=== PATIENT | male | born 1955 | race Caucasian/White ===

== ENCOUNTER → 2018-06-23 | Outpatient (CLI) | payer BC ==
[~2018-06-23] MED LIST: ASPI-700; ATOR80TA18; CLOP75TA19; REGADENOSON 0.4 MG/5 ML SYG ONE
--- NOTE | 2018-06-23 15:00 | CARRPT ---
DATE OF PROCEDURE: 06/23/2018 TYPE OF PROCEDURE: Lexiscan Cardiolite stress test, electrocardiogram portion. REASON FOR STRESS TESTING: Chest pain, assess for ischemia. BASELINE VITAL SIGNS AND ELECTROCARDIOGRAM: Pulse 62, blood pressure 130/83. Electrocardiogram reve aled baseline normal sinus rhythm at 62, normal axis, normal intervals, J-point elevation in inferola teral leads 2, 3, V5, V6. PROCEDURE IN DETAILS: The patient underwent standard Lexiscan infusion protocol over 10 seconds foll owed by radiolabeled tracer. The patient's test was stopped due to completion of protocol. Maximal achieved blood pressure during the test was 142/91. Maximum heart rate during the test was 93. ELECTROCARDIOGRAM FINDINGS: The patient did not develop any new Lexiscan-induced ST or T-wave change s from baseline abnormalities. No documented PVCs. SYMPTOMS: The patient had no complaints of chest pain or shortness of breath during stress testing. IMPRESSION: 1. No Lexiscan-induced ST or T-wave changes from baseline abnormalities diagnostic of cardiac ischem ia. 2. No complaints of chest pain or shortness of breath during stress testing. 3. No documented premature ventricular contractions during stress testing. 4. Report of nuclear images to follow in separate dictation. Dictated By: GUILLERMO CARRANZA/NANCI Conf#: [id number] DID#: [id number]
--- NOTE | 2018-06-23 17:27 | RADRPT ---
Echocardiogram Report [id number] : 1955 (62y 9m)Study Date: 06/23/2018 10:16:42 AM Gender: MAccession #: [id number] Tech: Bertrand Herrera [facility] Location: EKG Ref.Physician: GUILLERMO ALVARADO Height(Cm): BSA: Weight(Kg): Quality: AdequateOrder Physician: GUILLERMO ALVARADO Account #: Procedures: Echocardiographic Report: Transthoracic echocardiogram with complete 2D, M-Mode, and doppler examination. Indications: Chest Pain. Measurements: 2D/M Mode Doppler Measurement Value Normal Range Measurement Value Normal Range LVIDd 2D 4.6 [ 4.2 - 5.8 ] cm AV Peak Roderick 1.2 [ 100.0 - 170.0 ] cm/sec LVIDs 2D 3.2 [ 2.5 - 4.0 ] cm AV Peak PG 5.0 [ 2.0 - 9.0 ] mmHg LVPWd 2D 0.9 [ 0.6 - 1.0 ] cm LVOT Peak Roderick 1.1 [ 70.0 - 110.0 ] cm/sec IVSd 2D 1.5 [ 0.6 - 1.0 ] cm LVOT Peak PG 5.0 [ 2.0 - 6.0 ] mmHg AoR Diam 2D 2.6 [ 2.6 - 3.4 ] cm MV E Peak Roderick 0.5 [ 60.0 - 130.0 ] cm/sec EDV 2D 97.3 [ 62.0 - 150.0 ] ml MV A Peak Roderick 0.6 [ 100.0 - 120.0 ] cm/sec ESV 2D 40.3 [ 21.0 - 61.0 ] ml MV E/A 0.8 [ 0.8 - 1.5 ] ratio EF 2D 58.6 [ 52.0 - 72.0 ] percent MV Decel Time 345 [ 104 - 258 ] msec LA Dimen 2D 3.3 [ 3.0 - 4.0 ] cm Lat E` Roderick 0.1 [ 10.0 - 15.0 ] cm/sec Lateral E/E` 6.6 [ 1.0 - 2.0 ] ratio MV E/A 0.8 [ 0.8 - 1.5 ] ratio TR Peak Roderick 2.2 [ 100.0 - 280.0 ] cm/sec TR Peak PG 20.0 mmHg RVSP 23.0 [ 10.0 - 36.0 ] mmHg Findings: Left Ventricle: Lower limits of normal systolic function. Normal left ventricular cavity size. Moderate asymmetric septal hypertrophy. Ejection fraction is visually estimated at 50-55 %. Tissue Doppler/Mitral Doppler indices are consistent with impaired relaxation (Stage I diastolic dysfunction). Right Ventricle: Normal right ventricular size. Normal right ventricular systolic function. Left Atrium: The left atrium is normal in size. Right Atrium: The right atrium is normal in size. Mitral Valve: Mild mitral leaflet calcification. Mild mitral annular calcification. Mild mitral valve regurgitation. Aortic Valve: No hemodynamically significant aortic stenosis by doppler. Aortic cusps appear mildly calcified. Mild aortic valve regurgitation. Tricuspid Valve: Normal appearance of the tricuspid valve. Estimated peak PA systolic pressure 23 mmHg. There is trace tricuspid regurgitation. Pericardium: Normal pericardium with no significant pericardial effusion. Aorta: Normal aortic root. IVC: Normal size and normal respiratory collapse consistent with normal right atrial pressure. Conclusions: Lower limits of normal systolic function. Normal left ventricular cavity size. Moderate asymmetric septal hypertrophy. Ejection fraction is visually estimated at 50-55 %. Tissue Doppler/Mitral Doppler indices are consistent with impaired relaxation (Stage I diastolic dysfunction). Mild mitral leaflet calcification. Mild mitral annular calcification. Mild mitral valve regurgitation. No hemodynamically significant aortic stenosis by doppler. Aortic cusps appear mildly calcified. Mild aortic valve regurgitation. Normal appearance of the tricuspid valve. Estimated peak PA systolic pressure 23 mmHg. There is trace tricuspid regurgitation. Electronically Signed By: Guillermo Alvarado 2018-06-23 17:26:52 PDT
== END | disposition home or self-care (01) ==
LOC: EKG 09:47
PROVIDERS: ATTEND Internal Medicine
DX: R07.9 Chest pain, unspecified (principal); R06.02 Shortness of breath
CPT/HCPCS: 78452; 93017; 93306; A9500; A9505; J2785

== ENCOUNTER 2018-10-21 06:54 | Inpatient (IN) | payer BC ==
[2018-10-20 14:14] VITALS: Ht 175.3 cm; Wt 66.8 kg
[~2018-10-21] VITALS: Ht 175.3 cm; Wt 66.8 kg
[2018-10-21] VITALS (23 sets, daily range): BP systolic 118–158; BP diastolic 66–93; PULSE 50–75; RESP 14–19
[~2018-10-21 06:54] MED LIST changes: +ASPI81TA52 PO; +ATOR40TA68 PO; +CHOL200073 PO; +DIAZEPAM 5 MG TAB PO SCH; +DIPHENHYDRAMINE 50 MG CAP PO SCH; +ERGO2000 PO; +FAMOTIDINE 20 MG TAB PO SCH; +ISOS30TA67 PO; +LOSA25TA2 PO; +LOSA50TA14 PO; +METO-448 PO; +MULTI PO; +OXYC-438 PO; -REGADENOSON 0.4 MG/5 ML SYG ONE; +TICA90TA PO
[2018-10-21] MEDS ORDERED: SOD CHLORIDE 0.45% 1,000 ML IV SCH (07:00)
[2018-10-21] MEDS ORDERED: LIDOCAINE 1% (MDV) 20 ML INJ ONE (09:07)
[2018-10-21] MEDS ORDERED: HEPARIN 1000 UNITS/ML 10 ML INJ ONE (09:07)
[2018-10-21] MEDS ORDERED: IODIXANOL LOCM 100 ML BTL ONE ×2 (09:07→10:31)
[2018-10-21] MEDS ORDERED: VERAPAMIL 5 MG INJ ONE (09:08)
[2018-10-21] MEDS ORDERED: FENTAnyl 50 MCG/ML VIAL ONE (09:08)
[2018-10-21] MEDS ORDERED: SOD CHLORIDE 0.9% 500 ML ONE (09:08)
[2018-10-21] MEDS ORDERED: NITROGLYCERIN (IC) 100 MCG/ML INJ ONE (09:08)
[2018-10-21] MEDS ORDERED: MIDAZOLAM 1 MG/ML 2 ML INJ ONE (09:08)
[2018-10-21] MEDS ORDERED: IOHEXOL 350MG/ML 50 ML BTL ONE (10:31)
[2018-10-21] MEDS ORDERED: SOD CHLORIDE 0.9% 1,000 ML IV SCH (11:04)
[2018-10-21] MEDS ORDERED: TICAGRELOR 90 MG TABLET ONE (11:09)
[2018-10-21] MEDS ORDERED: ASPIRIN 325 MG TAB ONE (11:09)
[2018-10-21] MEDS ORDERED: OXYCODONE/ACETAMINOPHEN (5/325) TAB PO PRN (11:30)
[2018-10-21] MEDS ORDERED: ZOLPIDEM 5 MG TAB PO PRN (11:30)
[2018-10-21] MEDS: ACETAMINOPHEN 325 MG TAB PO PRN (17:15)
[2018-10-21] MEDS: TICAGRELOR 90 MG TABLET PO SCH (22:03)
[2018-10-21] MEDS: ATORVASTATIN 40 MG TAB PO SCH (22:07)
[2018-10-22] VITALS (17 sets, daily range): BP systolic 113–159; BP diastolic 66–99; PULSE 59–109; RESP 8–30
[2018-10-22] MEDS ORDERED: NON-FORMULARY/PATIENT OWN MED (Ergocalciferol (Vitamin D2) (Vitamin D2) 2,000 UNIT) PO SCH (09:00)
[2018-10-22] MEDS: LOSARTAN 50 MG TAB PO SCH (09:24)
[2018-10-22] MEDS: MULTIVITAMINS THERAPEUTIC TAB PO SCH (09:24)
[2018-10-22] MEDS: CHOLECALCIFEROL 2,000 UNIT CAP PO SCH (09:25)
[2018-10-22] MEDS: ASPIRIN (EC) 81 MG TAB PO SCH (09:25)
[2018-10-22] MEDS: TICAGRELOR 90 MG TABLET PO SCH ×2 (09:32→21:09)
[2018-10-22] MEDS ORDERED: LIDOCAINE 1% (MDV) 20 ML INJ ONE (11:41)
[2018-10-22] MEDS ORDERED: HEPARIN 1000 UNITS/ML 10 ML INJ ONE (11:41)
[2018-10-22] MEDS ORDERED: IODIXANOL LOCM 100 ML BTL ONE ×5 (11:41→14:33)
[2018-10-22] MEDS ORDERED: VERAPAMIL 5 MG INJ ONE (11:41)
[2018-10-22] MEDS ORDERED: NITROGLYCERIN (IC) 100 MCG/ML INJ ONE (11:41)
[2018-10-22] MEDS ORDERED: FENTAnyl 50 MCG/ML VIAL ONE ×2 (11:46→14:32)
[2018-10-22] MEDS ORDERED: MIDAZOLAM 1 MG/ML 2 ML INJ ONE ×2 (11:46→14:53)
[2018-10-22] MEDS ORDERED: BIVALIRUDIN 250MG /NS 50 ML 50 ML IVPB ONE ×2 (12:39→13:59)
[2018-10-22] MEDS ORDERED: EPTIFIBATIDE 100 ML IV ONE (15:38)
[2018-10-22] MEDS ORDERED: EPTIFIBATIDE 20 ML ONE (15:38)
[2018-10-22] MEDS ORDERED: ONDANSETRON 4 MG INJ ONE (15:40)
[2018-10-22] MEDS ORDERED: AL HYDROX/MG HYDROX/SIMETH 30 ML CUP PO PRN (16:00)
[2018-10-22] MEDS ORDERED: OXYCODONE/ACETAMINOPHEN (5/325) TAB PO PRN (16:00)
[2018-10-22] MEDS ORDERED: ACETAMINOPHEN 325 MG TAB PO PRN (16:00)
[2018-10-22] MEDS ORDERED: ONDANSETRON 4 MG INJ IV PRN (16:00)
[2018-10-22] MEDS ORDERED: EPTIFIBATIDE 100 ML IV SCH (16:14)
[2018-10-22] MEDS: SOD CHLORIDE 0.9% 1,000 ML IV SCH (16:52)
[2018-10-22] MEDS: ATORVASTATIN 40 MG TAB PO SCH (21:07)
[2018-10-22] MEDS: morphine 2 MG INJ IV PRN (21:57)
[2018-10-23] VITALS (22 sets, daily range): BP systolic 105–158; BP diastolic 66–107; PULSE 57–104; RESP 9–24
[2018-10-23] MEDS ORDERED: HEPARIN 1000 UNITS/ML 10 ML INJ IV ONE (05:00)
[2018-10-23] MEDS: HEPARIN 25000 UNITS/250 ML 250 ML IV SCH (05:02)
[2018-10-23] MEDS: SOD CHLORIDE 0.9% 1,000 ML IV SCH (05:03)
[2018-10-23] MEDS: MULTIVITAMINS THERAPEUTIC TAB PO SCH (08:07)
[2018-10-23] MEDS: CHOLECALCIFEROL 2,000 UNIT CAP PO SCH (08:07)
[2018-10-23] MEDS: ASPIRIN (EC) 81 MG TAB PO SCH (08:07)
[2018-10-23] MEDS: LOSARTAN 50 MG TAB PO SCH (08:08)
[2018-10-23] MEDS: TICAGRELOR 90 MG TABLET PO SCH ×2 (08:09→21:02)
[2018-10-23] MEDS: morphine 2 MG INJ IV PRN (08:14)
[2018-10-23] MEDS ORDERED: HEPARIN 1000 UNITS/ML 10 ML INJ IV PRN (11:00)
[2018-10-23] MEDS: ATORVASTATIN 40 MG TAB PO SCH (20:57)
[2018-10-24] VITALS (21 sets, daily range): BP systolic 90–149; BP diastolic 54–98; PULSE 59–117; RESP 9–28
[2018-10-24] MEDS: HEPARIN 25000 UNITS/250 ML 250 ML IV SCH ×2 (03:09→23:58)
[2018-10-24] MEDS: ASPIRIN (EC) 81 MG TAB PO SCH (08:12)
[2018-10-24] MEDS: LOSARTAN 50 MG TAB PO SCH (08:12)
[2018-10-24] MEDS: MULTIVITAMINS THERAPEUTIC TAB PO SCH (08:12)
[2018-10-24] MEDS: CHOLECALCIFEROL 2,000 UNIT CAP PO SCH (08:12)
[2018-10-24] MEDS: TICAGRELOR 90 MG TABLET PO SCH ×2 (08:14→20:42)
[2018-10-24] MEDS: ACETAMINOPHEN 325 MG TAB PO PRN (17:59)
[2018-10-24] MEDS: ATORVASTATIN 40 MG TAB PO SCH (20:40)
[2018-10-24] MEDS: METOPROLOL 25 MG TAB PO SCH (20:41)
[2018-10-25] VITALS (26 sets, daily range): BP systolic 85–160; BP diastolic 59–97; PULSE 59–86; RESP 7–30
[2018-10-25] MEDS ORDERED: DEXTROSE 5%-0.9% NACL 1,000 ML IV SCH
[2018-10-25] MEDS ORDERED: LOSARTAN 25 MG TAB PO SCH (09:00)
[2018-10-25] MEDS: ASPIRIN (EC) 81 MG TAB PO SCH (09:58)
[2018-10-25] MEDS: CHOLECALCIFEROL 2,000 UNIT CAP PO SCH (09:58)
[2018-10-25] MEDS: MULTIVITAMINS THERAPEUTIC TAB PO SCH (09:58)
[2018-10-25] MEDS: METOPROLOL 25 MG TAB PO SCH (09:58)
[2018-10-25] MEDS: TICAGRELOR 90 MG TABLET PO SCH (09:59)
[2018-10-25] MEDS ORDERED: MIDAZOLAM 1 MG/ML 2 ML INJ ONE (11:00)
[2018-10-25] MEDS ORDERED: FENTAnyl 50 MCG/ML VIAL ONE (11:00)
[2018-10-25] MEDS ORDERED: VERAPAMIL 5 MG INJ ONE (11:00)
[2018-10-25] MEDS ORDERED: LIDOCAINE 1% (MDV) 20 ML INJ ONE (11:00)
[2018-10-25] MEDS ORDERED: IODIXANOL LOCM 100 ML BTL ONE (11:00)
[2018-10-25] MEDS ORDERED: NITROGLYCERIN (IC) 100 MCG/ML INJ ONE (11:01)
[2018-10-25] MEDS ORDERED: niCARdipine 25 MG INJ ONE ×2 (11:01→11:45)
[2018-10-25] MEDS ORDERED: SOD CHLORIDE 0.9% 1,000 ML IV SCH (12:00)
[2018-10-25] MEDS ORDERED: AL HYDROX/MG HYDROX/SIMETH 30 ML CUP PO PRN (12:30)
[2018-10-25] MEDS ORDERED: morphine 2 MG INJ IV PRN (12:30)
[2018-10-25] MEDS ORDERED: ONDANSETRON 4 MG INJ IV PRN (12:30)
[2018-10-25] MEDS ORDERED: ACETAMINOPHEN 325 MG TAB PO PRN (12:30)
== END 2018-10-25 17:30 | disposition home or self-care (01) | DRG 246 ==
LOC: SDS 06:54 → REC 11:51 → SDS 11:51 → TEL 13:40 → ICU 10-22 14:29
PROVIDERS: ADMIT Internal Medicine; ATTEND Internal Medicine
PROC: 02703ZZ Dilation of Coronary Artery, One Artery, Percutaneous Approach (ICD-10-PCS; 2018-10-21)
PROC: 4A023N7 Measurement of Cardiac Sampling and Pressure, Left Heart, Percutaneous Approach (ICD-10-PCS; 2018-10-21)
PROC: B2101ZZ Fluoroscopy of Single Coronary Artery using Low Osmolar Contrast (ICD-10-PCS; 2018-10-21)
PROC: 027034Z Dilation of Coronary Artery, One Artery with Drug-eluting Intraluminal Device, Percutaneous Approach (ICD-10-PCS; principal; 2018-10-21 09:30)
PROC: 027135Z Dilation of Coronary Artery, Two Arteries with Two Drug-eluting Intraluminal Devices, Percutaneous Approach (ICD-10-PCS; 2018-10-22)
PROC: 02703DZ Dilation of Coronary Artery, One Artery with Intraluminal Device, Percutaneous Approach (ICD-10-PCS; 2018-10-22)
PROC: 4A023N7 Measurement of Cardiac Sampling and Pressure, Left Heart, Percutaneous Approach (ICD-10-PCS; 2018-10-22)
PROC: B2111ZZ Fluoroscopy of Multiple Coronary Arteries using Low Osmolar Contrast (ICD-10-PCS; 2018-10-22)
PROC: 4A023N7 Measurement of Cardiac Sampling and Pressure, Left Heart, Percutaneous Approach (ICD-10-PCS; 2018-10-25)
PROC: B2101ZZ Fluoroscopy of Single Coronary Artery using Low Osmolar Contrast (ICD-10-PCS; 2018-10-25)
DX: I25.10 Atherosclerotic heart disease of native coronary artery without angina pectoris (principal); I10 Essential (primary) hypertension; E78.5 Hyperlipidemia, unspecified; D64.9 Anemia, unspecified
CPT/HCPCS: 71045; 80048; 80061; 82550; 82553; 83735; 84484; 85025; 85610; 85730; 87081; 92928; 92929; 93005; 93454; 93458; C1725; C1874; C1887; J0583; J1327; J1644; J2250; J2270; J2405; J3010; J7030; J7040; J7042; Q9967